=== PATIENT | female | born 1945 | race African-American/Black ===

== ENCOUNTER 2019-03-06 19:35 | Inpatient (IN) | payer MEDICARE ==
[~2019-03-06] VITALS: Ht 162.6 cm; Wt 49.9 kg
[2019-03-06] MEDS ORDERED: SODIUM CHLORIDE 0.9% 1,000 ML IV ONE (20:12)
[2019-03-06 21:03] LABS: CLARITY URINE CLOUDY (CLEAR); COLOR URINE YELLOW (YELLOW); KETONES URINE NEGATIVE (NEGATIVE); LEUKOCYTE ESTERASE URINE 3+ (NEGATIVE); NITRITE URINE POSITIVE (NEGATIVE); OCCULT BLOOD URINE 1+ (NEGATIVE); PH URINE 5.5 (4.5-8.0); PROTEIN URINE TRACE (NEGATIVE); SPECIFIC GRAVITY URINE 1.012 (1.005-1.030); UROBILINOGEN URINE 0.2 E.U./dL (0.2-1.0)
[2019-03-06] MEDS ORDERED: CEFTRIAXONE 1 G PREMIX 50 ML IV ONE (21:15)
[2019-03-06 21:36] LABS: BASOPHILS % 0.5 % (0.0-2.0); EOSINOPHILS % 1.9 % (0.0-5.0); HEMATOCRIT. 28.3 % (36.0-48.0); HEMOGLOBIN. 9.4 g/dL (12.0-16.0); LYMPHOCYTES % 28.1 % (20.0-50.0); MEAN CORPUSCULAR HEMOGLOBIN 28.3 pg (28.0-32.0); MEAN CORPUSCULAR VOLUME 85.2 fL (81.0-99.0); MEAN PLATELET VOLUME 7.5 fl (7.4-10.4); MONOCYTES % 9.4 % (2.0-8.0); NEUTROPHILS % 60.1 % (40.0-76.0); PLATELET 283 x1000/uL (130-400); RED BLOOD CELL COUNT 3.32 mill/uL (4.2-5.4); RED CELL DISTRIBUTION WIDTH 20.6 % (11.6-14.6)
[2019-03-06 21:41] LABS: CHLORIDE 125 mEq/L (98-107)
[2019-03-06 21:42] LABS: INR 1.2
[2019-03-06] MEDS ORDERED: SODIUM CHLORIDE 0.45% 500 ML IV ONE (22:30)
[2019-03-06] MEDS ORDERED: ONDANSETRON HCL 4MG/2ML INJ IV PRN (23:30)
[2019-03-06] MEDS ORDERED: IPRATROPIUM/ALBUTEROL 0.5-3(2.5)MG/3ML NEB INH PRN (23:30)
[2019-03-07] VITALS (7 sets, daily range): BP systolic 104–134; BP diastolic 40–68
[2019-03-07] MEDS ORDERED: PIPERACILLIN/TAZOBACTAM 3.375GM/50ML PREMIX IV SCH (01:00)
[2019-03-07] MEDS ORDERED: MEROPENEM 500 MG in SODIUM CHLORIDE 0.9% 50 ML IV SCH (02:00)
[2019-03-07 07:31] LABS: BASOPHILS % 0.4 % (0.0-2.0); EOSINOPHILS % 1.2 % (0.0-5.0); HEMATOCRIT. 31.1 % (36.0-48.0); HEMOGLOBIN. 10.1 g/dL (12.0-16.0); LYMPHOCYTES % 24.7 % (20.0-50.0); MEAN CORPUSCULAR VOLUME 86.6 fL (81.0-99.0); MEAN PLATELET VOLUME 8.2 fl (7.4-10.4); MONOCYTES % 8.2 % (2.0-8.0); NEUTROPHILS % 65.5 % (40.0-76.0); PLATELET 280 x1000/uL (130-400); RED BLOOD CELL COUNT 3.59 mill/uL (4.2-5.4); RED CELL DISTRIBUTION WIDTH 21.7 % (11.6-14.6)
[2019-03-07 08:21] LABS: PHOSPHORUS 3.4 mg/dL (2.5-4.9)
[2019-03-07] MEDS: DEXT 5%/0.2% NACL 1,000 ML IV SCH ×2 (12:23→21:44)
[2019-03-07] MEDS ORDERED: VANCOMYCIN 1250MG in DEXTROSE 5% WATER 250ML IV NR (18:00)
[2019-03-07] MEDS ORDERED: VANCOMYCIN 1 G PREMIX 200 ML IV SCH (20:30)
[2019-03-08] VITALS: BP 110/48
[2019-03-08] MEDS: MEROPENEM 500 MG in SODIUM CHLORIDE 0.9% 50 ML IV SCH ×4 (00:06→19:58)
[2019-03-08 04:00] VITALS: BP 90/44
[2019-03-08] MEDS: DEXT 5%/0.2% NACL 1,000 ML IV SCH (07:49)
[2019-03-08 08:00] VITALS: BP 122/70
[2019-03-08] MEDS: ACETAMINOPHEN 650MG SUPP PR PRN (10:16)
[2019-03-08] MEDS ORDERED: VANCOMYCIN 1 G PREMIX 200 ML IV SCH ×2 (15:00→18:00)
[2019-03-08] MEDS ORDERED: VANCOMYCIN 750 MG PREMIX 150 ML IV SCH (15:00)
[2019-03-08 16:00] VITALS: BP 137/88
[2019-03-08 20:00] VITALS: BP 100/61
[2019-03-09] VITALS: BP 109/55
[2019-03-09] MEDS: MEROPENEM 500 MG in SODIUM CHLORIDE 0.9% 50 ML IV SCH ×3 (03:50→22:57)
[2019-03-09 04:00] VITALS: BP 110/60
[2019-03-09] MEDS: DEXT 5%/0.2% NACL 1,000 ML IV SCH ×2 (04:44→12:39)
[2019-03-09] MEDS: VANCOMYCIN 750 MG PREMIX 150 ML IV SCH (05:14)
[2019-03-09 08:18] VITALS: BP 115/65
[2019-03-09 11:34] VITALS: BP 114/53
[2019-03-09 12:14] LABS: CHLORIDE 115 mEq/L (98-107)
[2019-03-09 15:23] LABS: PHOSPHORUS 1.9 mg/dL (2.5-4.9)
[2019-03-09 15:57] VITALS: BP 115/67
[2019-03-09 20:00] VITALS: BP 104/49
[2019-03-10] VITALS: BP 90/50
[2019-03-10] MEDS: VANCOMYCIN 750 MG PREMIX 150 ML IV SCH ×2 (02:50→18:03)
[2019-03-10] MEDS: DEXT 5%/0.2% NACL 1,000 ML IV SCH ×2 (02:51→11:16)
[2019-03-10] MEDS: MEROPENEM 500 MG in SODIUM CHLORIDE 0.9% 50 ML IV SCH ×2 (02:58→11:11)
[2019-03-10 04:00] VITALS: BP 104/48
[2019-03-10 08:00] VITALS: BP 118/54
[2019-03-10 12:00] VITALS: BP 116/48
[2019-03-10] MEDS ORDERED: CEFTAZIDIME PENTAHYDRATE 1 G in DEXTROSE 5% WATER 50 ML IV SCH (18:00)
[2019-03-10 20:00] VITALS: BP 107/52
[2019-03-10] MEDS: CEFTAZIDIME PENTAHYDRATE 1 G in DEXTROSE 5% WATER 50 ML IV SCH (20:35)
[2019-03-10] MEDS: ACETAMINOPHEN 650MG SUPP PR PRN (23:40)
[2019-03-11] VITALS: BP 108/53
[2019-03-11] MEDS: DEXT 5%/0.2% NACL 1,000 ML IV SCH ×3 (00:45→16:25)
[2019-03-11] MEDS: CEFTAZIDIME PENTAHYDRATE 1 G in DEXTROSE 5% WATER 50 ML IV SCH ×3 (03:06→20:29)
[2019-03-11 04:00] VITALS: BP 103/49
[2019-03-11 08:00] VITALS: BP 133/53
[2019-03-11] MEDS: VANCOMYCIN 750 MG PREMIX 150 ML IV SCH (11:52)
[2019-03-11 12:00] VITALS: BP 101/52
[2019-03-11 16:00] VITALS: BP 116/54
[2019-03-11 20:00] VITALS: BP 122/52
[2019-03-12] VITALS: BP 116/52
[2019-03-12] MEDS: DEXT 5%/0.2% NACL 1,000 ML IV SCH ×2 (01:37→11:49)
[2019-03-12] MEDS: CEFTAZIDIME PENTAHYDRATE 1 G in DEXTROSE 5% WATER 50 ML IV SCH ×3 (03:37→22:10)
[2019-03-12 04:00] VITALS: BP 110/48
[2019-03-12] MEDS: VANCOMYCIN 750 MG PREMIX 150 ML IV SCH (06:00)
[2019-03-12 12:00] VITALS: BP 92/32
[2019-03-12 16:00] VITALS: BP 95/38
[2019-03-12] MEDS: METRONIDAZOLE 500MG TABLET PO SCH (16:28)
[2019-03-12 20:00] VITALS: BP 107/56
[2019-03-13] VITALS: BP 111/53
[2019-03-13 04:00] VITALS: BP 103/37
[2019-03-13] MEDS: CEFTAZIDIME PENTAHYDRATE 1 G in DEXTROSE 5% WATER 50 ML IV SCH ×3 (04:27→20:12)
[2019-03-13] MEDS: DEXT 5%/0.2% NACL 1,000 ML IV SCH ×2 (04:27→10:10)
[2019-03-13] MEDS: METRONIDAZOLE 500MG TABLET PO SCH ×2 (05:51→17:37)
[2019-03-13 08:00] VITALS: BP 101/46
[2019-03-13 12:26] VITALS: BP 99/41
[2019-03-13 15:50] VITALS: BP 96/46
[2019-03-13 20:00] VITALS: BP 87/31
[2019-03-14] VITALS: BP 114/69
[2019-03-14] MEDS: CEFTAZIDIME PENTAHYDRATE 1 G in DEXTROSE 5% WATER 50 ML IV SCH ×2 (03:28→11:31)
[2019-03-14 04:00] VITALS: BP 118/56
[2019-03-14] MEDS: METRONIDAZOLE 500MG TABLET PO SCH (06:55)
[2019-03-14 08:00] VITALS: BP 117/51
[2019-03-14 12:00] VITALS: BP 107/55
[2019-03-14] MEDS: ACETAMINOPHEN 650MG SUPP PR PRN (13:11)
[2019-03-14] MEDS: DEXT 5%/0.2% NACL 1,000 ML IV SCH ×2 (13:21→22:40)
[2019-03-14] MEDS: MEROPENEM 1,000 MG in SODIUM CHLORIDE 0.9% 100 ML IV SCH (16:41)
[2019-03-14 20:00] VITALS: BP 99/55
[2019-03-15] VITALS: BP 107/56
[2019-03-15 04:00] VITALS: BP 98/58
[2019-03-15] MEDS: MEROPENEM 1,000 MG in SODIUM CHLORIDE 0.9% 100 ML IV SCH ×2 (04:12→15:21)
[2019-03-15] MEDS: DEXT 5%/0.2% NACL 1,000 ML IV SCH ×2 (06:14→21:10)
[2019-03-15 07:30] LABS: BASOPHILS % 0.3 % (0.0-2.0); EOSINOPHILS % 2.5 % (0.0-5.0); HEMATOCRIT. 24.6 % (36.0-48.0); HEMOGLOBIN. 8.1 g/dL (12.0-16.0); LYMPHOCYTES % 21.8 % (20.0-50.0); MEAN CORPUSCULAR HEMOGLOBIN 27.9 pg (28.0-32.0); MEAN CORPUSCULAR VOLUME 84.5 fL (81.0-99.0); MEAN PLATELET VOLUME 8.4 fl (7.4-10.4); MONOCYTES % 13.8 % (2.0-8.0); NEUTROPHILS % 61.6 % (40.0-76.0); PLATELET 258 x1000/uL (130-400); RED BLOOD CELL COUNT 2.92 mill/uL (4.2-5.4); RED CELL DISTRIBUTION WIDTH 19.2 % (11.6-14.6)
[2019-03-15 08:00] VITALS: BP 79/34
[2019-03-15 08:29] LABS: CHLORIDE 111 mEq/L (98-107)
[2019-03-15 08:45] LABS: CREATINE KINASE 191 IU/L (26-192)
[2019-03-15 12:00] VITALS: BP 76/28
[2019-03-15] MEDS ORDERED: POTASSIUM CHLORIDE INJ 40 MEQ in DEXT 5% WATER 500 ML IV NR (13:00)
[2019-03-15 16:00] VITALS: BP 74/26
[2019-03-15 20:00] VITALS: BP 96/49
[2019-03-16] VITALS: BP 96/47
[2019-03-16] MEDS: MEROPENEM 1,000 MG in SODIUM CHLORIDE 0.9% 100 ML IV SCH (03:32)
[2019-03-16 04:00] VITALS: BP 92/48
[2019-03-16] MEDS: DEXT 5%/0.2% NACL 1,000 ML IV SCH ×2 (04:57→14:24)
[2019-03-16 08:00] VITALS: BP 95/37
[2019-03-16 12:00] VITALS: BP 95/37
[2019-03-16 12:35] VITALS: BP 95/37
== END 2019-03-16 17:06 | DRG 853 ==
LOC: ER 21:02 → 6EST 22:34 → ENRESERV 23:33
PROVIDERS: ADMIT Internal Medicine; ATTEND Internal Medicine
PROC: 0QBN0ZZ Excision of Right Metatarsal, Open Approach (ICD-10-PCS; principal; 2019-03-08)
PROC: 0JBJ0ZZ Excision of Right Hand Subcutaneous Tissue and Fascia, Open Approach (ICD-10-PCS; 2019-03-09)
DX: A41.9 Sepsis, unspecified organism (principal); L89.154 Pressure ulcer of sacral region, stage 4; G93.41 Metabolic encephalopathy; N17.9 Acute kidney failure, unspecified; E87.0 Hyperosmolality and hypernatremia; M86.8X7 Other osteomyelitis, ankle and foot; E46 Unspecified protein-calorie malnutrition; N39.0 Urinary tract infection, site not specified; Z68.1 Body mass index [BMI] 19.9 or less, adult; T87.81 Dehiscence of amputation stump; F03.90 Unspecified dementia, unspecified severity, without behavioral disturbance, psychotic disturbance, mood disturbance, and anxiety; R62.7 Adult failure to thrive; D63.8 Anemia in other chronic diseases classified elsewhere; E03.9 Hypothyroidism, unspecified; M24.572 Contracture, left ankle; E11.69 Type 2 diabetes mellitus with other specified complication; E78.00 Pure hypercholesterolemia, unspecified; E86.0 Dehydration; I10 Essential (primary) hypertension; K21.9 Gastro-esophageal reflux disease without esophagitis; R13.10 Dysphagia, unspecified; R47.02 Dysphasia; Y83.5 Amputation of limb(s) as the cause of abnormal reaction of the patient, or of later complication, without mention of misadventure at the time of the procedure; Z74.01 Bed confinement status; Z86.73 Personal history of transient ischemic attack (TIA), and cerebral infarction without residual deficits
CPT/HCPCS: 36415; 71045; 73630; 80048; 80076; 80202; 82550; 83605; 83735; 84100; 84134; 84443; 85651; 86140; 87070; 87075; 87077; 87186; 92610; 93005; 93923; 96365; 99285; C1893; J0696; J0713; J2185; J2543; J3370; J3480; J7030; J7050; J7060